=== PATIENT | male | born 1955 | race Caucasian/White ===

== ENCOUNTER 2023-12-10 06:16 | Day surgery (SDC) | payer MEDICARE, OTHER, SELFPAY ==
[2023-12-10] VITALS (10 sets, daily range): BP systolic 144–186; BP diastolic 76–100; BMI 34.4
[2023-12-10] MEDS: ROXICODONE 10 MG PO (16:27)
== END 2023-12-10 17:00 | disposition home or self-care (01) ==
LOC: SDS 06:16
PROVIDERS: ATTENDING PHYSICIAN Surgery
DX: N43.3 Hydrocele, unspecified (principal)
CPT/HCPCS: 55040; 88302; 93005

== ENCOUNTER 2023-12-31 15:47 | Emergency (ER) | payer MEDICARE, OTHER, SELFPAY ==
[2023-12-31] VITALS (9 sets, daily range): BP systolic 187–203; BP diastolic 85–105; BMI 35.1
[2023-12-31 17:08] LABS: % Basophils 1.1 % (0-2); % Eosinophils 5.8 % (0-6); % Immature Granulocytes 0.3 % (0-0.5); % Lymphocytes 17.5 % (20.5-51.1); % Monocytes 11.2 % (1.7-9.3); % Neutrophils 64.1 % (42.2-75.2); Absolute Basophils 0.1 10^3/uL (0-0.2); Absolute Eosinophils 0.5 10^3/uL (0-0.7); Absolute Lymphocytes 1.6 10^3/uL (1.2-3.4); Absolute Neutrophils 5.8 10^3/uL (1.4-6.5); Hematocrit 48.7 % (39.0-52.0); Hemoglobin 16.7 g/dL (13.0-18.0); Mean Corp Hgb Conc. 34.3 g/dL (33.0-37.0); Mean Corpuscular Volume 87.6 fL (80.0-94.0); Mean Platelet Volume 9.6 fL (7.4-10.4); Nucleated Red Blood Cells % 0 % (-); Platelet Count 216 10^3/uL (130-400); Red Blood Cell Count 5.56 10^6/uL (4.70-6.10)
[2023-12-31 17:46] LABS: Blood Urea Nitrogen 26 mg/dl (9-20); Calcium 9.4 mg/dl (8.4-10.2); Carbon Dioxide 25 mmol/L (22-30); Chloride 104 mmol/L (98-107); Estimated Creatinine Clearance 70 ml/min; Glucose 87 mg/dl (70-99); Sodium 136 mmol/L (135-145)
[2023-12-31] MEDS: NORVASC 5 MG PO (17:54)
[2023-12-31] MEDS: TYLENOL 1000 MG PO (18:36)
--- NOTE | 2023-12-31 18:57 | ED.GENMED ---
History of Present Illness
General
Chief Complaint: Blood Pressure Problem
Source: patient
Exam Limitations: none
Time Seen by Provider: 12/31/23 16:59
History of Present Illness
History of Present Illness:
Patient with 3 weeks of intermittent headaches. Was noted to have elevated blood pressure when he had a hydrocele repair 3 weeks ago. Blood pressure was noted to be elevated at home earlier today which prompted a call to his primary physician who
recommended urgent care follow-up within recommended ER evaluation. Patient denies any focal neurologic symptoms. He has a previous history of hypertension but this had gotten under control and he no longer is on blood pressure medicine. He had
no issues with his hydrocele repair.
Past History
Past History
ED Past Medical History: Psychiatric (Anxiety)
ED Past Surgical History: Orthopedic and Urological
Social History
Tobacco: Smoker
Alcohol: None
Drug: None
Review of Systems
Review of Systems
All Other Systems: Not applicable
Constitutional: Denies fever
Respiratory: Reports no symptoms
Cardiac: Reports no symptoms
Phy Exam
Physical Exam
Physical Exam:
GENERAL: Alert and oriented in no apparent distress
EYE: Orbits normal. Discs sharp
NECK: Supple, nontender
CARDIAC: Regular rate and rhythm without any obvious murmurs.
LUNGS: Clear breath sounds,normal
ABDOMEN: Soft, without focal tenderness or distention
NEUROLOGICAL: Alert and oriented , grossly non-focal
SKIN: Warm and dry, no rash or lesion, no discoloration, skin intact.
MUSCULOSKELETAL: No edema,no deformity.Good color
PSYCH: Normal and appropriate interaction.
Course
Orders/Labs/Results
Orders:
Orders
12/31/23 16:14
Electrocardiogram (*1) Urgent
Reason for Study: Chest Pain
EKG- Treatment ONCE
12/31/23 16:56
Basic Metabolic Panel Urgent
Complete Blood Count/With Diff Urgent
12/31/23 17:45
CT Head W/o Iv Contrast Urgent
Comment:
Reason For Exam: Headache/hypertension
12/31/23 17:47
Amlodipine [Norvasc] 5 mg PO NOW STA
12/31/23 18:27
Acetaminophen [Tylenol] 1,000 mg PO NOW STA
12/31/23 19:13
Cefdinir [Omnicef] 300 mg PO NOW STA
Abnormal Lab Results
12/31/23
16:56
Absolute Monos (auto) 1.0 H 10^3/uL
(0.1-0.6)
Lymphocytes % 17.5 L %
(20.5-51.1)
Monocytes % 11.2 H %
(1.7-9.3)
BUN 26 H mg/dl
(9-20)
12/31/23 16:56
12/31/23 16:56
Vital Signs
Initial and Last Documented VS:
Initial Vital Signs
Temp Pulse Resp BP Pulse Ox
98.0 F 71 20 192/96 94
12/31/23 16:08 12/31/23 16:08 12/31/23 16:08 12/31/23 16:08 12/31/23 16:08
Last Documented Vital Signs
Temp Pulse Resp BP Pulse Ox
98.0 F 71 20 187/92 92
12/31/23 16:08 12/31/23 16:08 12/31/23 16:08 12/31/23 19:53 12/31/23 19:53
MDM/Problems Addressed
Differential Diagnosis Includes:
Patient's blood pressure running 200/85 on arrival. This was the range earlier today and the earlier in the last few weeks. Likely does require blood pressure management. Not convinced this explains his headaches however. He is nonfocal. Very
low suspicion for bleed. Reasonable to start blood pressure management. CT does show sinusitis which may be the etiology of his symptoms.
*EKG
Interpreted by ED Provider?: Yes
Interpretation: normal
Comparison EKG: no changes
Heart Rate: 63
Rate: normal
Rhythm: sinus
[place]: normal axis
Interval: normal interval
QRS Pattern: normal QRS
Ischemia: no ischemia
*Critical Care Note
Total Time (30-74mins, 75-104mins- exclusive of procedures): Not Applicable
Update Note
Update Note:
1914.... Patient has remained medically stable. CT scan shows sinusitis which is more likely the cause of his headaches and his blood pressure. Blood pressures have been in the 190s to 200s over mid 90s range. This is likely been going on.
Patient's penicillin allergy is blotchy rash 30 years ago. Feel a cephalosporin is reasonable.
1999.... Last blood pressure 187/92. Headache is resolved. Patient is stable. Tolerated Omnicef well. Discharged to follow-up
ED Attending Note
-
Portions of this chart may have been created with voice recognition software.� Occasional wrong word or��sound alike� substitutions may have occurred due to the inherent limitations of voice recognition software.
Discharge Plan
Departure
Patient Disposition: Home (Routine Discharge)
Date of Disposition: 12/31/23
Time of Disposition: 19:56
Patient with high blood pressure during this ER visit?: Yes
Discharge Problem:
Hypertension, Headache, Sinusitis
Instructions: Headache, Adult ED, Sinusitis, Adult ED, BLOOD PRESSURE
Prescriptions:
New
cefdinir 300 mg capsule
300 mg PO BID 10 Days Qty: 20 0RF
amlodipine 5 mg tablet
5 mg PO DAILY Qty: 30 0RF
No Action
Trelegy Ellipta 100-62.5-25 mcg Blister With Device
1 inh INHALATION DAILY
Referrals:
Andrew Hutson PA-C [Family Provider] - Follow up in 2-3 days
Interventions
Interventions:
*Risk Screen - Suicide Last Done: 12/31/23 16:08
*General Assessment Last Done: 12/31/23 16:08
*Neglect/Abuse Screening Last Done: 12/31/23 16:08
*ED COVID-19 Vaccine History Last Done: 12/31/23 17:06
ED- Cardiac Assessment Last Done: 12/31/23 17:07
ED- Neurological Assessment Last Done: 12/31/23 17:07
ED- Pulmonary Assessment Last Done: 12/31/23 17:07
ED-Skin Assessment Last Done: 12/31/23 17:07
Discharge Date and Time
Print Language: [place]
[2023-12-31] MEDS: OMNICEF 300 MG PO (19:24)
== END 2023-12-31 20:07 | disposition home or self-care (01) ==
LOC: EMR 15:47
PROVIDERS: EMERGENCY PHYSICIAN Emergency Medicine; FAMILY PHYSICIAN Physician Assistant Medical
DX: J01.90 Acute sinusitis, unspecified (principal); I10 Essential (primary) hypertension; R51.9 Headache, unspecified; F17.200 Nicotine dependence, unspecified, uncomplicated
CPT/HCPCS: 99285; 70450; 80048; 85025; 93005

== ENCOUNTER 2024-01-04 12:48 | Emergency (ER) | payer MEDICARE, OTHER, SELFPAY ==
[2024-01-04] VITALS (7 sets, daily range): BP systolic 152–197; BP diastolic 76–105
--- NOTE | 2024-01-04 13:42 | ED.GENMED ---
History of Present Illness
General
Chief Complaint: Blood Pressure Problem
Source: patient and spouse
Exam Limitations: none
Time Seen by Provider: 01/04/24 13:08
Nursing documentation reviewed up to this point in time: agreed with
History of Present Illness
History of Present Illness:
Patient to ED with complaint of conitinued elevated BP readings and headache. He was seen in ED on 12/30 and started on Norvasc 5mg daily. Dose was increased to 10mg on Wednesday. He has been checking his BP at home and readings range 170-190's/
88-118. Reports compliance with medication. CT on 12/30 showed sinusitis and he was placed on cefdinir. No improvement in headaches. Denies any CP/pressure. History of COPD, no changes in respiratory status. Denies fever/chills, recent illness.
Hydrocele 2 weeks ago and states BP has been elevated since. He was treated for HTN many years ago. States he was taking Losartan. Med was d/c'd after weight loss and he states he has not had any issues since. He feels that BP has been elevated
since the hydrocele surgery however he only checked his BP due to his headache. Has not routinely monitored BP. Brought to ED by spouse for eval.
Past History
Past History
ED Past Medical History: COPD, HTN and Psychiatric (Anxiety)
ED Past Surgical History: Orthopedic and Urological
Social History
Tobacco: Smoker
Alcohol: None
Drug: None
Review of Systems
Review of Systems
All Other Systems: ROS reviewed and negative except as documented in HPI and ROS
Constitutional: Reports no symptoms
EENT: Reports no symptoms
Respiratory: Reports no symptoms
Cardiac: Reports no symptoms
ABD/GI: Reports no symptoms
: Reports no symptoms
Musculoskeletal: Reports no symptoms
Skin: Reports no symptoms
Neurological: Reports headache
Psychiatric: Reports no symptoms
Phy Exam
General Physical Exam
General Presentation: well appearing and no apparent distress
General age: appears stated age
General Skin: warm and dry
General Habitus: normal
General Mental: alert
Cardiovascular Exam
Cardiovascular Exam: regular rate/rhythm and no edema
Pulmonary Exam
Pulmonary Exam: lungs clear, no respiratory distress, chest non tender and decreased breath sounds
Neurological Exam
Neurological Exam: alert, oriented x3, CN II-XII intact, no motor deficits and no sensory deficits
Musculoskeletal Exam
Musculoskeletal Exam: full ROM and neuro vasc intact
Skin Exam
Skin Exam: normal color, warm/dry and no rash
Psychiatric Exam
Psychiatric Exam: normal mood/affect
Course
Orders/Labs/Results
Orders:
Orders
01/04/24 13:31
Losartan [Cozaar] 50 mg PO NOW STA
01/04/24 13:55
Complete Blood Count/With Diff Urgent
Comprehensive Metabolic Panel Urgent
01/04/24 14:12
Electrocardiogram (*1) Urgent
Reason for Study: Fatigue / Weakness
EKG- Treatment ONCE
Abnormal Lab Results
01/04/24
13:55
Hgb 18.2 H g/dL
(13.0-18.0)
Absolute Monos (auto) 0.9 H 10^3/uL
(0.1-0.6)
Lymphocytes % 14.1 L %
(20.5-51.1)
Monocytes % 10.3 H %
(1.7-9.3)
BUN 24 H mg/dl
(9-20)
Glucose 109 H mg/dl
(70-99)
01/04/24 13:55
01/04/24 13:55
Vital Signs
Initial and Last Documented VS:
Initial Vital Signs
Temp Pulse Resp BP Pulse Ox
98.2 F 88 20 178/102 95
01/04/24 12:50 01/04/24 12:50 01/04/24 12:50 01/04/24 12:50 01/04/24 12:50
Last Documented Vital Signs
Temp Pulse Resp BP Pulse Ox
98.2 F 76 16 157/76 92
01/04/24 12:50 01/04/24 14:32 01/04/24 14:32 01/04/24 14:32 01/04/24 14:32
*Pulse Oximetry
Patient hypoxic: no
*EKG
Interpretation: normal
Rate: normal
Rhythm: sinus
*Critical Care Note
Total Time (30-74mins, 75-104mins- exclusive of procedures): Not Applicable
Update Note
Update Note:
BP now 157/76. Reports headache has resolved. Will discharge home, continue Losartan 50mg daily. He will check BP 2x daily, follow up with PCP on Wednesday as scheduled. He does follow with cardiology but does not recall name. He will call for an
appointment when he gets home. Given instructions on s/s to return to ED and he is agreeable to plan.
ED Attending Note
-
Portions of this chart may have been created with voice recognition software.� Occasional wrong word or��sound alike� substitutions may have occurred due to the inherent limitations of voice recognition software.
Discharge Plan
Departure
Patient Disposition: Home (Routine Discharge)
Date of Disposition: 01/04/24
Time of Disposition: 14:51
Patient with high blood pressure during this ER visit?: No
Condition: Good
Covid-19: Not Applicable
Discharge Problem:
Elevated blood pressure reading
Instructions: High Blood Pressure (DC)
Prescriptions:
New
losartan 50 mg tablet
50 mg PO DAILY Qty: 30 0RF
No Action
Trelegy Ellipta 100-62.5-25 mcg Blister With Device
1 inh INHALATION DAILY
cefdinir 300 mg capsule
300 mg PO BID 10 Days Qty: 20 0RF
amlodipine 5 mg tablet
10 mg PO DAILY
Referrals:
Andrew Hutson PA-C [Family Provider] - Keep scheduled appt
Activity Restrictions/Additional Instructions:
Schedule follow up appointment with your cardiololgist.
Interventions
Interventions:
*Risk Screen - Suicide Last Done: 01/04/24 12:50
*General Assessment Last Done: 01/04/24 12:50
*Neglect/Abuse Screening Last Done: 01/04/24 12:50
ED- Fall Risk Assessment Last Done: 01/04/24 13:57
*ED COVID-19 Vaccine History Last Done: 01/04/24 13:11
ED- Cardiac Assessment Last Done: 01/04/24 13:13
ED- Neurological Assessment Last Done: 01/04/24 13:12
ED- Pulmonary Assessment Last Done: 01/04/24 13:12
Discharge Date and Time
Print Language: [place]
[2024-01-04] MEDS: COZAAR 50 MG PO (13:47)
[2024-01-04 14:01] LABS: % Basophils 1.2 % (0-2); % Eosinophils 4.3 % (0-6); % Immature Granulocytes 0.2 % (0-0.5); % Lymphocytes 14.1 % (20.5-51.1); % Monocytes 10.3 % (1.7-9.3); % Neutrophils 69.9 % (42.2-75.2); Absolute Basophils 0.1 10^3/uL (0-0.2); Absolute Eosinophils 0.4 10^3/uL (0-0.7); Absolute Lymphocytes 1.3 10^3/uL (1.2-3.4); Absolute Monocytes 0.9 10^3/uL (0.1-0.6); Absolute Neutrophils 6.2 10^3/uL (1.4-6.5); Hematocrit 50.7 % (39.0-52.0); Hemoglobin 18.2 g/dL (13.0-18.0); Mean Corp Hgb Conc. 35.9 g/dL (33.0-37.0); Mean Corpuscular Volume 83.7 fL (80.0-94.0); Mean Platelet Volume 9.4 fL (7.4-10.4); Nucleated Red Blood Cells % 0 % (-); Platelet Count 248 10^3/uL (130-400); Red Blood Cell Count 6.06 10^6/uL (4.70-6.10); Red Cell Dist. Width 14.1 % (11.5-14.5); White Blood Cell Count 8.9 10^3/uL (4.8-10.8)
[2024-01-04 14:22] LABS: ALT (SGPT) 27 U/L (0-50); AST (SGOT) 25 U/L (17-59); Albumin 4.4 g/dl (3.5-5.0); Alkaline Phosphatase 83 U/L (38-126); Blood Urea Nitrogen 24 mg/dl (9-20); Calcium 9.4 mg/dl (8.4-10.2); Carbon Dioxide 26 mmol/L (22-30); Chloride 103 mmol/L (98-107); Glucose 109 mg/dl (70-99); Potassium 3.9 mmol/L (3.5-5.1); Sodium 138 mmol/L (135-145); Total Bilirubin 0.8 mg/dl (0.2-1.3)
== END 2024-01-04 14:59 | disposition home or self-care (01) ==
LOC: EMR 12:48
PROVIDERS: Nurse Practitioner; EMERGENCY PHYSICIAN Emergency Medicine; FAMILY PHYSICIAN Physician Assistant Medical
DX: R03.0 Elevated blood-pressure reading, without diagnosis of hypertension (principal); R51.9 Headache, unspecified; J44.9 Chronic obstructive pulmonary disease, unspecified; F41.9 Anxiety disorder, unspecified; F17.200 Nicotine dependence, unspecified, uncomplicated; Z88.0 Allergy status to penicillin
CPT/HCPCS: 99283; 80053; 85025; 93005

== ENCOUNTER → 2024-03-30 08:03 | Outpatient (REF) | payer MEDICARE, OTHER, SELFPAY | LOC: DHCBC/DCA 08:03 | PROVIDERS: ATTENDING PHYSICIAN Physician Assistant Medical; FAMILY PHYSICIAN Physician Assistant Medical | DX: I10 Essential (primary) hypertension (principal); R06.02 Shortness of breath; G47.30 Sleep apnea, unspecified | CPT/HCPCS: 78452; 93017; A9500; J2785 ==

== ENCOUNTER → 2024-04-06 12:59 | Outpatient (REF) | payer MEDICARE, OTHER, SELFPAY | LOC: HWRCS 12:59 | PROVIDERS: ATTENDING PHYSICIAN Physician Assistant Medical; FAMILY PHYSICIAN Physician Assistant Medical | DX: I10 Essential (primary) hypertension (principal); R06.02 Shortness of breath; G47.30 Sleep apnea, unspecified | CPT/HCPCS: 93306 ==

== ENCOUNTER 2024-07-06 09:25 | Inpatient (IN) | payer MEDICARE, OTHER, SELFPAY ==
[2024-07-05] VITALS (16 sets, daily range): BP systolic 108–158; BP diastolic 47–96; BMI 35.0
[2024-07-05] MEDS: DECADRON 10 MG IV (10:17)
[2024-07-05] MEDS: DUONEB 3 ML INH ×3 (10:18→19:45)
--- NOTE | 2024-07-05 10:28 | ED.GENMED ---
History of Present Illness
General
Chief Complaint: Breathing Problem
Source: patient and spouse
Exam Limitations: none
Time Seen by Provider: 07/05/24 10:00
Nursing documentation reviewed up to this point in time: agreed with
History of Present Illness
History of Present Illness:
68-year-old male past medical history of COPD, hypertension presenting to the emergency department today with concerns of shortness of breath worsening over the past 2 days. Started with some mild upper respiratory symptoms over the past 2 days
worsening shortness of breath today. Feels similar to COPD exacerbations. Has been taking inhaler at home without relief. Denies specific chest pain denies fevers.
Past History
Past History
ED Past Medical History: COPD, HTN and Psychiatric (Anxiety)
ED Past Surgical History: Orthopedic and Urological
Social History
Tobacco: Smoker
Alcohol: None
Drug: None
Review of Systems
Review of Systems
Allergies reviewed?: Yes
All Other Systems: ROS reviewed and negative except as documented in HPI and ROS
Phy Exam
Physical Exam
Physical Exam:
GENERAL: Alert , in no apparent distress
EYE: pupils equal and reactive
NECK: Supple, no significant adenopathy.
ENT: o/p clr, mmm.
CARDIAC: Regular rate and rhythm .
LUNGS: Diffuse inspiratory and expiratory wheezing
ABDOMEN: Soft, without focal tenderness, no r/g, no cvat
NEUROLOGICAL: Alert and oriented, no focal neuro deficits
SKIN: Warm and dry, skin intact.
MUSCULOSKELETAL: No edema, well perfused.
PSYCH: Normal and appropriate interaction.
Scores
Heart Failure Risk
Heart Failure Risk Score: Not Applicable
Course
Orders/Labs/Results
Orders:
Orders
07/05/24 10:03
Dexamethasone Sod Phosphate [Decadron] 10 mg IV NOW STA
Ipratropium/Albuterol Sulfate [Duoneb] 3 ml INH R NOW STA
07/05/24 10:07
EKG [Electrocardiogram (*1)] Urgent
Reason for Study: Chest Pain
EKG- Treatment ONCE
CR Chest - 2 Views Urgent
Comment:
Reason For Exam: cough sob
07/05/24 10:14
Complete Blood Count/With Diff Urgent
Comprehensive Metabolic Panel Urgent
Lactic Acid Q4H
Comment: CANCEL 2nd LACTIC ACID IF 1st LACTIC ACID IS LESS THAN 2
NT-proBNP Urgent
07/05/24 11:09
COVID-19 Antigen Urgent
Source: Nasal Swab
Influenza A+B Rapid Molecular Urgent
VIRGIL Source: Nasal Swab
Specimen Description:
07/05/24 11:35
Ipratropium/Albuterol Sulfate [Duoneb] 3 ml INH R NOW ONE
07/05/24 13:03
Azithromycin [Zithromax] 500 mg PO NOW STA
Abnormal Lab Results
07/05/24
10:14
RDW 14.8 H %
(11.5-14.5)
Absolute Lymphs (auto) 0.5 L 10^3/uL
(1.2-3.4)
Absolute Monos (auto) 0.8 H 10^3/uL
(0.1-0.6)
Neutrophils % 75.9 H %
(42.2-75.2)
Lymphocytes % 7.8 L %
(20.5-51.1)
Monocytes % 14.3 H %
(1.7-9.3)
Sodium 134 L mmol/L
(135-145)
Creatinine 1.4 H mg/dL
(0.7-1.3)
Glucose 132 H mg/dl
(70-99)
07/05/24 10:14
07/05/24 10:14
Vital Signs
Initial and Last Documented VS:
Initial Vital Signs
Temp Pulse Resp BP Pulse Ox
98.4 F 100 24 157/77 88
07/05/24 09:48 07/05/24 09:48 07/05/24 09:48 07/05/24 09:48 07/05/24 09:48
Last Documented Vital Signs
Temp Pulse Resp BP Pulse Ox
98.4 F 101 32 134/78 93
07/05/24 09:48 07/05/24 10:25 07/05/24 11:19 07/05/24 10:00 07/05/24 11:19
MDM/Problems Addressed
MDM/Problems Addressed:
68-year-old male presenting to the emergency department today with concerns of worsening shortness of breath over the past 2 days or so. Started with mild URI symptoms 2 days ago with gradual worsening shortness of breath and wheezing. Does have a
history of COPD. This feels like a COPD exacerbation. Denies specific fevers denies specific chest pain. Patient started on DuoNebs as well as steroids. Patient reassessed after treatment and has slight improvement able to speak in full
sentences still with considerable inspiratory and expiratory wheeze plan to admit for further treatment. Also given dose of azithromycin due to change in phlegm. Patient flu test positive. Otherwise labs unremarkable. Patient satting well in the
mid 90s with 2 L nasal cannula
*Critical Care Note
Total Time (30-74mins, 75-104mins- exclusive of procedures): Not Applicable
ED Attending Note
-
Portions of this chart may have been created with voice recognition software.� Occasional wrong word or��sound alike� substitutions may have occurred due to the inherent limitations of voice recognition software.
Discharge Plan
Departure
Patient Disposition: Admit
Date of Disposition: 07/05/24
Time of Disposition: 13:08
Admit to: Med/Surg and Telemetry
Admit to doctor: Jimi
Presentation/result/management discussed w/ accepting MD/DO: Hospitalist
Patient with high blood pressure during this ER visit?: No
Condition: Good
Covid-19: Not Applicable
Discharge Problem:
COPD exacerbation, Influenza
Prescriptions:
No Action
Trelegy Ellipta 100-62.5-25 mcg Blister With Device
1 inh INHALATION R DAILY
amlodipine 5 mg tablet
5 mg PO DAILY
NyQuil 7.5-60-30-1,000 mg/30 mL Liquid
15 ml PO HSPRN PRN (Reason: cough and congestion)
losartan 50 mg tablet
100 mg PO DAILY
Referrals:
Shanice Elias CRNP [Family Provider] -
Interventions
Interventions:
*Risk Screen - Suicide Last Done: 07/05/24 09:48
*General Assessment Last Done: 07/05/24 09:48
*Neglect/Abuse Screening Last Done: 07/05/24 09:48
*ED COVID-19 Vaccine History Last Done: 07/05/24 10:25
ED- Cardiac Assessment Last Done: 07/05/24 11:19
ED- Pulmonary Assessment Last Done: 07/05/24 10:26
Discharge Date and Time
Print Language: [place]
[2024-07-05 10:36] LABS: % Basophils 0.7 % (0-2); % Immature Granulocytes 0.3 % (0-0.5); % Lymphocytes 7.8 % (20.5-51.1); % Monocytes 14.3 % (1.7-9.3); % Neutrophils 75.9 % (42.2-75.2); Absolute Eosinophils 0.1 10^3/uL (0-0.7); Absolute Lymphocytes 0.5 10^3/uL (1.2-3.4); Absolute Monocytes 0.8 10^3/uL (0.1-0.6); Absolute Neutrophils 4.4 10^3/uL (1.4-6.5); Hemoglobin 14.8 g/dL (13.0-18.0); Mean Corp Hgb Conc. 33.6 g/dL (33.0-37.0); Mean Corpuscular Hgb 30.6 pg (27.0-31.0); Mean Corpuscular Volume 90.9 fL (80.0-94.0); Mean Platelet Volume 9.9 fL (7.4-10.4); Nucleated Red Blood Cells % 0 % (-); Platelet Count 207 10^3/uL (130-400); Red Blood Cell Count 4.84 10^6/uL (4.70-6.10); Red Cell Dist. Width 14.8 % (11.5-14.5); White Blood Cell Count 5.8 10^3/uL (4.8-10.8)
[2024-07-05 10:51] LABS: ALT (SGPT) 20 U/L (0-50); AST (SGOT) 22 U/L (17-59); Albumin 3.8 g/dl (3.5-5.0); Alkaline Phosphatase 84 U/L (38-126); Blood Urea Nitrogen 19 mg/dl (9-20); Calcium 8.5 mg/dl (8.4-10.2); Carbon Dioxide 26 mmol/L (22-30); Chloride 99 mmol/L (98-107); Estimated Creatinine Clearance 65 ml/min; Glucose 132 mg/dl (70-99); Potassium 4.3 mmol/L (3.5-5.1); Sodium 134 mmol/L (135-145); Total Bilirubin 0.5 mg/dl (0.2-1.3); Total Protein 6.7 g/dl (6.3-8.2); eGFR 54.07
[2024-07-05 11:11] LABS: NT-proBNP 989 pg/ml
[2024-07-05 11:21] LABS: Lactic Acid 1.4 mmol/L (0.7-2.0)
[2024-07-05 11:36] LABS: COVID-19 Antigen Negative (Negative)
[2024-07-05] MEDS: ZITHROMAX 500 MG PO (13:20)
--- NOTE | 2024-07-05 14:38 | HPS.HSE ---
Family Physician
-
Family Physician: CARLOS Frazier
Chief Complaint
-
SOB
History of Present Illness
The patient is a 68-year-old male with past medical history significant for COPD, hypertension, presenting to the ED today due to dyspnea, change in phlegm production (increased and whitish), with shortness of breath that has worsened over the past
2 days. It started with mild URI symptoms, and the became worse today, similar to prior COPD exacerbations. Home inhaler without relief. No CP. No n/v/d, no bleeding, no dysuria. O2 in ED 88%, pulse 101, RR 32, initially unable to speak in full
sentences. Not on home oxygen.
Flu A positive
Na 134 Creat 1.4
ED txt:
-Dexa 10 mg IV
-Duo-Neb INH
-Azithro PO
Medical History
Past Medical History
Past Medical History: Reports COPD, HTN (Essential), Psychiatric (anxiety) and Other (FAIZAN intolerant to CPAP, BPH, obesity)
Past Surgical History: Reports Orthopedic (knee surgery) and Other (hydrocele)
Social History
Tobacco: Smoker
Alcohol: None
Drug: None
Personal:
Living: With Family
Family History
Family History: Other (asked patient, no significant history)
Allergies / Home Medications
Allergies reflects when Allergies were last updated in [employer].
Home Medications with original date entered in [employer]
Allergy/Medication List:
Allergies
Allergy/AdvReac Type Severity Reaction Status Date / Time
Penicillins Allergy Rash Verified 07/05/24 09:48
Home Medications
fluticasone fur. 100 mcg-umeclid 62.5 mcg-vilant 25 mcg inhalat.powder (Trelegy Ellipta) 1 inh inhalation R DAILY 12/07/23
amlodipine 5 mg tablet 5 mg PO DAILY 01/04/24
akmwnsyji-PNE-UZ-acetaminophen 7.5 mg-60 [id number]/30mL oral liqd 15 ml PO HSPRN PRN cough and congestion 07/05/24
losartan 50 mg tablet 100 mg PO DAILY 07/05/24
Review of Systems
-
A 12 point ROS was completed and negative except as noted: Yes
Physical Exam
Vital Signs
Vital Signs
Temp Pulse Resp BP Pulse Ox
98.4 F 101 32 134/78 93
07/05/24 09:48 07/05/24 10:25 07/05/24 11:19 07/05/24 10:00 07/05/24 11:19
Physical Exam
General: Well Developed, Well Nourished and Respiratory Distress (audible wheezing, tachypneic)
HEENT: NormoCephalic, Anicteric and Moist mucous membranes
Respiratory: Wheezes (end expiratory)
Cardiac: S1/S2 and Regular Rhythm
GI: Non Tender, Non Distended and Normal Bowel Sounds
Musculoskeletal: No Clubbing, No Cyanosis and No Edema
Skin: Other (skin tag/lesion right face)
Neuro: AO x 3, No Motor Deficits and Nonfocal/grossly intact
Psych: Calm
Laboratory Results
-
07/05/24 10:14
07/05/24 10:14
Laboratory Results
Lactic Acid Cancelled 07/05/24 14:15
Total Bilirubin 0.5 mg/dl (0.2-1.3) 07/05/24 10:14
AST 22 U/L (17-59) 07/05/24 10:14
ALT 20 U/L (0-50) 07/05/24 10:14
Alkaline Phosphatase 84 U/L (38-126) 07/05/24 10:14
Data Reviewed
-
Diagnostic Radiology: Report Reviewed by me (Large bulla within the medial and posterior right upper lung, which has developed an air-fluid level. This would suggest infection of the bulla.)
Medical Tests (Nuc Med, Echo, EKG etc): Report Reviewed by me (NSR)
Old Records: Reviewed (ECHO 04/06/24 Normal left ventricular chamber size. Mild concentric left ventricular hypertrophy. Normal regional wall motion. Normal left ventricular systolic function. Left ventricular ejection fraction is 55-60%.
Normal diastolic function. Normal right ventricular size and function. )
Impression/Plan
-
IMPRESSION:
The patient is a 68-year-old male with past medical history significant for COPD, hypertension, presenting to the ED today due to dyspnea, change in phlegm production, with shortness of breath that has worsened over the past 2 days. It started with
mild URI symptoms, and the became worse today, similar to prior COPD exacerbations. Home inhaler without relief. No CP. O2 in ED 88%, pulse 101, RR 32, initially unable to speak in full sentences. Not on home oxygen.
Flu A positive
Na 134 Creat 1.4
ED txt:
-Dexa 10 mg IV
-Duo-Neb INH
-Azithro PO
#Acute hypoxic respiratory insufficiency, 88% RA, improved to low 90s on 2 L associated with worsening cough w phlegm production
#Influenza A positive
#Large bulla within the medial and posterior right upper lung, which has developed an air-fluid level, possible infection of the bulla.
#Hyponatremia Na 134
#Creat 1.4, possible KATHIA vs CKD undiagnosed, possibly volume depleted
-IVF, check legionella UA
#concern for underlying CAP, bacterial
#Essential HTN
#BPH
#Skin tag/lesion right face
-pt will follow OP with Derm
PLAN:
-O2 per NC w weaning protocol
-Pulm Consultation placed, discussed the patient with Pulm
- Recs: CT chest w/o contrast, treat for CAP
-IV Rocephin (pt tolerated cephalosporins in the past), oral Doxy
-Nebs scheduled
-IV Dexa 4 mg TID
-Tamiflu 75 BID
-IV fluids for 1 liter, repeat labs in am
-supportive care, sputum cx, CHARLES
-home BP meds w hold parameters
DVT proph-SQ Lovenox
Full Code
[2024-07-05] MEDS: SYMBICORT 80/4.5 MCG INHALER 2 PUFF INH (19:45)
[2024-07-05] MEDS: VIBRAMYCIN 100 MG PO (20:09)
[2024-07-05] MEDS: TAMIFLU 75 MG PO (20:09)
[2024-07-05] MEDS: DECADRON 4 MG IV (20:11)
[2024-07-05] MEDS: NSS 1000 IV (20:12)
--- NOTE | 2024-07-05 20:28 | PTCARENOTE ---
Pt sent to CT scan via stretcher.
[2024-07-05] MEDS: ROCEPHIN 1000 MG IV (20:52)
[2024-07-05] MEDS: LOVENOX 40 MG SC (20:52)
[2024-07-05] MEDS: STERILE WATER FOR INJECTION 10 ML IV (20:53)
[2024-07-06] VITALS (12 sets, daily range): BP systolic 108–153; BP diastolic 51–96; BMI 33.1
--- NOTE | 2024-07-06 01:15 | PTCARENOTE ---
Pt received as M/S hold in [facility]. AAOx3, pleasant. Admission and assessment completed (refer to worklist). Pt has some difficulty recalling physician names. Oriented to surroundings and plan of care discussed. Harsh moist non prod cough, HERNADEZ,
diffuse expiratory wheezes. 94% on 3L. Instructed to ring for assist when OOB, verbalizes understanding. #20 RAC w/NSS at 150 mL/hr, infusing w/o complication. Call jorgensen w/in reach.
[2024-07-06] MEDS: DECADRON 4 MG IV ×3 (04:33→19:44)
[2024-07-06] MEDS: DUONEB 3 ML INH ×5 (05:06→19:12)
[2024-07-06 05:48] LABS: Blood Urea Nitrogen 24 mg/dl (9-20); Calcium 8.4 mg/dl (8.4-10.2); Carbon Dioxide 26 mmol/L (22-30); Chloride 102 mmol/L (98-107); Estimated Creatinine Clearance 70 ml/min; Glucose 137 mg/dl (70-99); Potassium 5.4 mmol/L (3.5-5.1); Sodium 137 mmol/L (135-145)
[2024-07-06] MEDS: NSS IV ×2 (07:31→17:13)
[2024-07-06] MEDS: SYMBICORT 80/4.5 MCG INHALER 2 PUFF INH ×2 (07:48→19:12)
[2024-07-06] MEDS: SPIRIVA RESPIMAT 2.5 MCG 2 PUFF INH (07:48)
--- NOTE | 2024-07-06 07:56 | CON.PUL ---
Consultation
Consultation Request
Date/Time Consultation Requested: 07/06/2024-7:30 AM
Date/Time Consultation Performed: 07/06/2024-7:30 AM
Requesting Provider: Hospitalist
Performing Provider: Dr. Simpson
Reason for Consultation: Shortness of breath
Medical History
-
Chief Complaint: Shortness of breath
History of Present Illness:
68-year-old smoking unvaccinated male with a history of COPD, hypertension, obstructive sleep apnea CPAP intolerance as well as anxiety and obesity who presented with increasing shortness of breath, nonproductive cough, wheezing found to have
influenza and pneumonia-pulmonary was consulted for shortness of breath/influenza and pneumonia 07/06/2024. Patient states that he is feeling improved on oxygen. He continues to have some shortness of breath, dyspnea exertion, but no chest pain,
chest tightness, mopped assist and has a nonproductive cough. He did not complain of any abdominal pain, or increased leg swelling or focal weakness. He states that he has tried CPAP in the past and was intolerant. He does not believe in vaccines.
Past Medical History
Past Medical History: None (Hypertension. COPD. Tobacco addiction. Anxiety. Obstructive sleep apnea-severe CPAP intolerant. BPH. Right TKA 2021.. Right shoulder rotator cuff repair. Hydrocele.)
Social History
Tobacco: Smoker ([id number])
Drug: None
Living: With Family
Occupational Exposures: No known asbestos exposure
Environmental Exposures: No known tuberculosis exposure
Family History
Family History: Other (Mother-hypertension.)
Allergies / Home Medications
Allergies
Allergy/AdvReac Type Severity Reaction Status Date / Time
Penicillins Allergy Rash Verified 07/05/24 09:48
Home Medications
�Medication �Instructions �Recorded �Confirmed �Last Taken �Type
fluticasone fur. 100 mcg-umeclid 1 inh inhalation R DAILY 12/07/23 07/05/24 07/04/24 History
62.5 mcg-vilant 25 mcg Lung/Breathing Issues
inhalat.powder (Trelegy Ellipta)
amlodipine 5 mg tablet 5 mg PO DAILY Blood Pressure 01/04/24 07/05/24 07/04/24 History
ccoqynabu-YFF-YH-acetaminophen 7.5 15 ml PO HSPRN PRN cough and 07/05/24 07/05/24 07/04/24 History
mg-60 [id number]/30mL oral liqd congestion
losartan 50 mg tablet 100 mg PO DAILY Blood Pressure 07/05/24 07/05/24 07/04/24 History
Review of Systems
-
Unable to Obtain full review of systems at this time due to: Other (Per HPI)
Vitals / Labs / Diagnostic Testing
Vital Signs
Temp Pulse Resp BP Pulse Ox
98.0 F 89 21 126/64 91
07/06/24 07:49 07/06/24 07:51 07/06/24 07:51 07/06/24 07:00 07/06/24 07:51
Lab Data
07/05/24 10:14
07/06/24 04:51
Microbiology
07/05/24 11:09 Nasal Swab Influenza Types A & B (SHEILA) - Final
Influenza A Positive, NAAT
Diagnostic Testing:
Physical Exam
-
Exam:
Well-nourished and well-developed in no apparent distress
HEENT-atraumatic, normocephalic, thick neck
Neck-supple, no JVD, no bruit
Heart-regular rate and rhythm-no murmurs, rubs or gallops
Chest with diminished breath sounds, prolonged expiratory time, expiratory wheezes
Abdomen-soft, nontender, nondistended, no hepatosplenomegaly
Extremities-no cyanosis, clubbing, edema and good peripheral pulses
Integument-intact, no rashes, lesions or ecchymosis
Neurology-alert and oriented, nonfocal motor and sensory exam
Assessment
-
68-year-old smoking unvaccinated male with a history of COPD, hypertension, obstructive sleep apnea CPAP intolerance as well as anxiety and obesity who presented with increasing shortness of breath, nonproductive cough, wheezing found to have
influenza and pneumonia-pulmonary was consulted for shortness of breath/influenza and pneumonia 07/06/2024.
COPD with acute exacerbation
Influenza A
Large right apical bleb/bulla-infected with air-fluid level
Hyponatremia
KATHIA
Conditions present prior to admission:
Hypertension.
COPD.
Tobacco addiction.
History of polycythemia-hemoglobin 18.3 02/2023
Anxiety.
Obstructive sleep apnea-severe CPAP intolerant.
BPH.
Right TKA 2021. Right shoulder rotator cuff repair. Hydrocele.
Plan
Respiratory decompensation in this unvaccinated smoker likely due to influenza and infected bulla/pneumonia
Supplemental oxygen as needed
Nebulizers
Symbicort and Spiriva continue
Mucolytic's
Mucus clearing devices
Decadron 4 mg IV every 8 hours
Check cultures
Sputum culture if possible
Follow radiographically
Monitor leukocytosis
Empiric antibiotics-ceftriaxone and doxycycline initiated
Tamiflu
Isolation/droplet precautions per protocol
Smoking cessation counseling provided
Vaccination counseling was also provided
Weight loss counseling
Monitor renal function-improving
DVT prophylaxis-on Lovenox
Nutrition
Early mobilization
Patient with severe obstructive sleep apnea, polycythemia-alternatives to CPAP including oral appliances, weight loss, positional therapy, and surgical interventions including hypoglossal nerve stimulation have been reviewed
Patient last saw Dr. Lemus 11/10/[id number] in the next 2 weeks
Diagnostic data:
Chest x-ray 07/05/2024-large bulla posterior right upper lobe developed air-fluid level and COPD changes
CT chest 03/18/2023:Reviewed, showed No evidence for pulmonary embolism.� No evidence for parenchymal lung disease.� Moderate paraseptal emphysema, upper lobe predominant..
CT chest 07/05/2024-centrilobular emphysema with multiple upper lobe blebs, new air-fluid level and a 7 cm right upper lobe bleb suggesting infection
Pulmonary function testing: (07/27/2023)FEV1 /FVC:42%FEV1:1.67 L-47%FVC:3.99 L -83% T.17-95%Residual volume:3.32 L-123%�RV/TLC ratio 46%Expiratory reserve volume:DLCO:10.97-38%DLCO/VA:49%
Portable sleep study 06/25/2023: Reviewed, showed severe obstructive sleep apnea.� Respiratory event index of 100 events per hour..
Echocardiogram 05/08/2020-normal EF, mild LVH, no valvular disease
Echocardiogram 04/06/2024-EF 55-60%, normal right ventricular size and function no valvular pathology
Data Reviewed
-
PFT: Report reviewed by me
EKG: Report reviewed by me
Radiology: Image personally visualized and interpreted and Report reviewed by me
CT Scan: Image personally visualized and interpreted and Report reviewed by me
Medical Tests (Nuc Med, Echo etc): Report reviewed by me
Labs: Labs reviewed by me
Old Records: Reviewed
Total Time Spent with Patient (in minutes): 65
[2024-07-06] MEDS: VIBRAMYCIN 100 MG PO ×2 (09:04→19:47)
[2024-07-06] MEDS: NICODERM TRANSDERMAL 14 MG TRANSDERM (09:04)
[2024-07-06] MEDS: NORVASC 5 MG PO (09:04)
[2024-07-06] MEDS: TAMIFLU 75 MG PO ×2 (09:05→19:47)
[2024-07-06] MEDS: COZAAR 100 MG PO (09:05)
--- NOTE | 2024-07-06 09:17 | PTCARENOTE ---
Weaning O2 as able, currently on 1L, >92%.
--- NOTE | 2024-07-06 09:24 | W.PN.HOSP.TC ---
Today's Communication/Plan
-
One time Lokelma
Hold Losartan
Assessment / Plan
Assessment / Plan
Physical Exam
General: Well Developed, Well Nourished and Respiratory Distress (audible wheezing, tachypneic)
HEENT: NormoCephalic, Anicteric and Moist mucous membranes
Respiratory: Wheezes (end expiratory)
Cardiac: S1/S2 and Regular Rhythm
GI: Non Tender, Non Distended and Normal Bowel Sounds
Musculoskeletal: No Clubbing, No Cyanosis and No Edema
Skin: Other (skin tag/lesion right face)
Neuro: AO x 3, No Motor Deficits and Nonfocal/grossly intact
Psych: Calm
The patient is a 68-year-old male with past medical history significant for COPD, hypertension, presenting to the ED today due to dyspnea, change in phlegm production, with shortness of breath that has worsened over the past 2 days. It started with
mild URI symptoms, and the became worse today, similar to prior COPD exacerbations. Home inhaler without relief. No CP. O2 in ED 88%, pulse 101, RR 32, initially unable to speak in full sentences. Not on home oxygen.
Flu A positive
Na 134 Creat 1.4
ED txt:
-Dexa 10 mg IV
-Duo-Neb INH
-Azithro PO
#Acute hypoxic respiratory insufficiency, 88% RA, improved to low 90s on 2 L associated with worsening cough w phlegm production
#Influenza A positive
#Large bulla within the medial and posterior right upper lung, which has developed an air-fluid level, possible infection of the bulla.
-O2 per NC w weaning protocol
-Pulm Consultation placed, discussed the patient with Pulm
- Recs: CT chest w/o contrast, treat for CAP
-IV Rocephin (pt tolerated cephalosporins in the past), oral Doxy
-Nebs scheduled
-IV Dexa 4 mg TID
-Tamiflu 75 BID
-IV fluids for 1 liter, repeat labs in am
-supportive care, sputum cx, CHARLES
-home BP meds w hold parameters
#Hyponatremia Na 134
Improved
# Hyperkalemia
Hold Losartan
One time Lokelma
# KATHIA on CKD II
c/w mild IVF
-IVF, check legionella UA
#concern for underlying CAP, bacterial
Empiric ABx
Order blood cultures
#Essential HTN
#BPH
#Skin tag/lesion right face
-pt will follow OP with Derm
DVT proph-SQ Lovenox
Full Code
Total time spent to see the patient, examine the patient, review data and lab results, discuss treatment plan with patient, nursing staff around 55 minutes
Anticipated Discharge: > 48 hours
Subjective/Interval History
-
Date of Service: July 06, 2024
Objective Data
-
Labs:
Laboratory Results
07/06/24
04:51
Sodium 137
Potassium 5.4 H D
Chloride 102
Carbon Dioxide 26
BUN 24 H
Creatinine 1.3
Glucose 137 H
Calcium 8.4
Vital Signs:
Vital Signs
Temp Pulse Resp BP Pulse Ox
98.0 F 92 43 132/51 95
07/06/24 07:49 07/06/24 09:15 07/06/24 09:15 07/06/24 09:00 07/06/24 09:15
I&O
07/05/24 07/06/24 07/07/24
06:59 06:59 06:59
Intake Total 1660 / 1660
Output Total 800 / 800
Balance 860 / 860
[2024-07-06] MEDS: LOKELMA 10 GRAM PO (10:27)
[2024-07-06] MEDS: NSS 1000 IV ×2 (10:30→21:24)
--- NOTE | 2024-07-06 12:31 | PTCARENOTE ---
Weaned to room air, SaO2 >92%. Approximately on hour later, SaO2 dropped to 85-88%. Back on 2L O2.
[2024-07-06] MEDS: ROCEPHIN 1000 MG IV (17:06)
[2024-07-06] MEDS: STERILE WATER FOR INJECTION 10 ML IV (17:06)
[2024-07-06] MEDS: LOVENOX 40 MG SC (17:15)
[2024-07-07] MEDS: DECADRON 4 MG IV (03:12)
[2024-07-07 07:10] VITALS: BP 152/77
[2024-07-07] MEDS: DUONEB INH (08:05)
[2024-07-07] MEDS: SYMBICORT 80/4.5 MCG INHALER 2 PUFF INH ×2 (08:06→19:45)
[2024-07-07] MEDS: SPIRIVA RESPIMAT 2.5 MCG 2 PUFF INH (08:06)
[2024-07-07 08:37] LABS: Hematocrit 47.2 % (39.0-52.0); Hemoglobin 15.2 g/dL (13.0-18.0); Mean Corp Hgb Conc. 32.2 g/dL (33.0-37.0); Mean Corpuscular Hgb 30.2 pg (27.0-31.0); Mean Corpuscular Volume 93.8 fL (80.0-94.0); Mean Platelet Volume 9.9 fL (7.4-10.4); Platelet Count 212 10^3/uL (130-400); Red Blood Cell Count 5.03 10^6/uL (4.70-6.10); Red Cell Dist. Width 14.9 % (11.5-14.5); White Blood Cell Count 5.7 10^3/uL (4.8-10.8)
[2024-07-07 09:03] LABS: Blood Urea Nitrogen 26 mg/dl (9-20); Carbon Dioxide 31 mmol/L (22-30); Chloride 102 mmol/L (98-107); Estimated Creatinine Clearance 76 ml/min; Glucose 108 mg/dl (70-99); Potassium 4.6 mmol/L (3.5-5.1); Sodium 140 mmol/L (135-145); eGFR > 60.00
--- NOTE | 2024-07-07 09:06 | W.PN.HOSP.TC ---
Today's Communication/Plan
-
Chest x ray in am
Change to oral prednisone
Home O2 upon dc
Stop IVF
Resume Losartan
Assessment / Plan
Assessment / Plan
Physical Exam
General: Well Developed, Well Nourished and Respiratory Distress (audible wheezing, tachypneic)
HEENT: NormoCephalic, Anicteric and Moist mucous membranes
Respiratory: Wheezes (end expiratory)
Cardiac: S1/S2 and Regular Rhythm
GI: Non Tender, Non Distended and Normal Bowel Sounds
Musculoskeletal: No Clubbing, No Cyanosis and No Edema
Skin: Other (skin tag/lesion right face)
Neuro: AO x 3, No Motor Deficits and Nonfocal/grossly intact
Psych: Calm
The patient is a 68-year-old male with past medical history significant for COPD, hypertension, presenting to the ED today due to dyspnea, change in phlegm production, with shortness of breath that has worsened over the past 2 days. It started with
mild URI symptoms, and the became worse today, similar to prior COPD exacerbations. Home inhaler without relief. No CP. O2 in ED 88%, pulse 101, RR 32, initially unable to speak in full sentences. Not on home oxygen.
Flu A positive
Na 134 Creat 1.4
ED txt:
-Dexa 10 mg IV
-Duo-Neb INH
-Azithro PO
#Acute hypoxic respiratory insufficiency, 88% RA, improved to low 90s on 2 L associated with worsening cough w phlegm production
#Influenza A positive
#Large bulla within the medial and posterior right upper lung, which has developed an air-fluid level, possible infection of the bulla.
-O2 per NC w weaning protocol
-Pulm Consultation placed, discussed the patient with Pulm
- Recs: CT chest w/o contrast, treat for CAP
-IV Rocephin (pt tolerated cephalosporins in the past), oral Doxy
-Nebs scheduled
-IV Dexa 4 mg TID , reduce to oral prednisone
-Tamiflu 75 BID
-IV fluids for 1 liter, repeat labs in am
-supportive care, sputum cx, CHARLES
- negative legionella UA
-home BP meds w hold parameters
#Hyponatremia Na 134
Improved
# Hyperkalemia
s/p Hold Losartan
s/p One time Lokelma
# KATHIA on CKD II
s/p mild IVF
#concern for underlying CAP, bacterial
Empiric ABx
Ordered blood cultures
#Essential HTN
#BPH
#Skin tag/lesion right face
-pt will follow OP with Derm
DVT proph-SQ Lovenox
Full Code
Total time spent to see the patient, examine the patient, review data and lab results, discuss treatment plan with patient, nursing staff around 55 minutes
Anticipated Discharge: 24 - 48 hours
Subjective/Interval History
-
Date of Service: July 07, 2024
He feels better
Objective Data
-
Labs:
Laboratory Results
07/07/24
07:14
WBC 5.7
Hgb 15.2
Hct 47.2
Plt Count 212
Sodium 140
Potassium 4.6
Chloride 102
Carbon Dioxide 31 H
BUN 26 H
Creatinine 1.2
Glucose 108 H
Calcium 8.0 L
Vital Signs:
Vital Signs
Temp Pulse Resp BP Pulse Ox
98.3 F 86 16 152/77 93
07/07/24 07:10 07/07/24 08:11 07/07/24 08:11 07/07/24 07:10 07/07/24 08:11
I&O
07/06/24 07/07/24 07/08/24
06:59 06:59 06:59
Intake Total 1660 / 1660 480 / 480
Output Total 800 / 800 1500 / 1500
Balance 860 / 860 -1020 / -1020
[2024-07-07] MEDS: VIBRAMYCIN 100 MG PO ×2 (09:39→19:40)
[2024-07-07] MEDS: NORVASC 5 MG PO (09:39)
[2024-07-07] MEDS: NICODERM TRANSDERMAL 14 MG TRANSDERM (09:40)
[2024-07-07] MEDS: TAMIFLU 75 MG PO ×2 (09:40→19:40)
--- NOTE | 2024-07-07 10:20 | W.PN.PUL.V3 ---
Today's Communication / Plan
-
.
Wean oxygen.
Extended course of antibiotics.-Consider infectious disease opinion in regards to length of therapy for infected bulla.
And is on taper.
Continue nebulizers and inhalers.
Outpatient pulmonary/sleep disorders follow-up.
Pulmonary. We'll sign off-. Please call with questions
Assessment
-
68-year-old smoking unvaccinated male with a history of COPD, hypertension, obstructive sleep apnea CPAP intolerance as well as anxiety and obesity who presented with increasing shortness of breath, nonproductive cough, wheezing found to have
influenza and pneumonia-pulmonary was consulted for shortness of breath/influenza and pneumonia 07/06/2024.
COPD with acute exacerbation
Influenza A
Large right apical bleb/bulla-infected with air-fluid level
Hyponatremia
KATHIA
Conditions present prior to admission:
Hypertension.
COPD.
Tobacco addiction.
History of polycythemia-hemoglobin 18.3 02/2023
Anxiety.
Obstructive sleep apnea-severe CPAP intolerant.
BPH.
Right TKA 2021. Right shoulder rotator cuff repair. Hydrocele.
Plan
Respiratory decompensation in this unvaccinated smoker likely due to influenza and infected bulla/pneumonia
Supplemental oxygen as needed-currently on 2 L
Nebulizers.-Albuterol 4 times a day
Symbicort and Spiriva continue
Mucolytic's
Mucus clearing devices
Decadron changed to prednisone-slow taper
.
Cultures reviewed
Sputum culture if possible
Follow radiographically
Monitor leukocytosis
Empiric antibiotics-ceftriaxone and doxycycline initiated
Tamiflu
Isolation/droplet precautions per protocol.
Consider infectious disease consultation for length of therapy of infected bulla
Smoking cessation counseling provided
Vaccination counseling was also provided
Weight loss counseling
Monitor renal function-improving
DVT prophylaxis-on Lovenox
Nutrition
Early mobilization.
Continue extended course of antibiotics for infected bulla, wean oxygen, home prednisone taper, nebulizers, and inhalers-pulmonary. We'll sign off-. Please call with questions
Patient with severe obstructive sleep apnea, polycythemia-alternatives to CPAP including oral appliances, weight loss, positional therapy, and surgical interventions including hypoglossal nerve stimulation have been reviewed
Patient last saw Dr. Lemus 11/10/[id number] in the next 2 weeks
Diagnostic data:
Chest x-ray 07/05/2024-large bulla posterior right upper lobe developed air-fluid level and COPD changes
CT chest 03/18/2023:Reviewed, showed No evidence for pulmonary embolism.� No evidence for parenchymal lung disease.� Moderate paraseptal emphysema, upper lobe predominant..
CT chest 07/05/2024-centrilobular emphysema with multiple upper lobe blebs, new air-fluid level and a 7 cm right upper lobe bleb suggesting infection
Pulmonary function testing: (07/27/2023)FEV1 /FVC:42%FEV1:1.67 L-47%FVC:3.99 L -83% T.17-95%Residual volume:3.32 L-123%�RV/TLC ratio 46%Expiratory reserve volume:DLCO:10.97-38%DLCO/VA:49%
Portable sleep study 06/25/2023: Reviewed, showed severe obstructive sleep apnea.� Respiratory event index of 100 events per hour..
Echocardiogram 05/08/2020-normal EF, mild LVH, no valvular disease
Echocardiogram 04/06/2024-EF 55-60%, normal right ventricular size and function no valvular pathology
Subjective Data
-
Date of Service:
Date of Service: July 07, 2024
Chief Complaint: Pulmonary Follow Up and Dyspnea Follow Up
Subjective:
Feels a little better, still wheezing, no chest pain or productive cough, no abdominal pain
Review of Systems
General: Other ( per HPI)
Objective Data
Data Reviewed
Vital Signs / I&O:
Vital Signs
Temp Pulse Resp BP Pulse Ox
98.3 F 86 16 152/77 93
07/07/24 07:10 07/07/24 08:11 07/07/24 08:11 07/07/24 07:10 07/07/24 08:11
Intake and Output
07/06/24 07/07/24 07/08/24
06:59 06:59 06:59
Intake Total 1660 / 1660 480 / 480
Output Total 800 / 800 1500 / 1500
Balance 860 / 860 -1020 / -1020
SaO2: 93
Nasal Cannula flow liters per minute: 2
Physical Exam
General: Respiratory Distress (n) and Comfortable
HEENT: Normocephalic, Anicteric and Moist Mucous Membranes
Cardiovascular: Regular Rhythm
Respiratory: Clear ( diminished breath sounds and prolonged expiratory time), Wheeze ( diffuse expiratory), Non-Labored Respirations, Accessory Resp Muscle Use (n) and Stridor (n)
GI: Soft, Non Distended and Non Tender
Neurology: Awake, Alert and No Motor Deficits
Skin: Warm, Good Color, Cyanosis (n), Jaundice (n) and Rash (n)
Labs/Micro/Reports
Lab Data
07/07/24 07:14
07/07/24 07:14
Microbiology
07/06/24 10:54 Sputum Gram Stain - Preliminary
07/05/24 21:23 Urine Legionella Urinary Antigen - Final
Negative for Legionella pneumophila Serogroup 1 antigen.
A negative result does not rule out the possiblity of
Legionella infection due to other serogroups or species of
Legionella. Clinical correlation is recommended.
07/05/24 11:09 Nasal Swab Influenza Types A & B (SHEILA) - Final
Influenza A Positive, NAAT
[2024-07-07] MEDS: VENTOLIN NEBULES 2.5 MG INH ×3 (11:11→19:45)
--- NOTE | 2024-07-07 11:58 | CM ---
CM reviewed chart, patient seen bedside with . Patient positive for flu. Patient resides with in a two story home, no steps to enter. Patient denies DME in the home, currently on O2, not on home O2. Patient reports [facility] after knee surgery,
denies SNF. Patient PCP Shanice Elias, pharmacy [facility], confirms some prescription coverage through [employer]. Patient denies needs at this time. CM will continue to follow for all discharge planning needs.
Plan; home with , no needs anticipated, watch for O2 needs.
[2024-07-07] MEDS: DELTASONE 40 MG PO (12:35)
[2024-07-07 15:19] VITALS: BP 150/84
--- NOTE | 2024-07-07 15:41 | RESPNOTE ---
patient went to bathroom off O2, SpO2 on return only 87-88%, re-placed 2L O2.
[2024-07-07] MEDS: ROCEPHIN 1000 MG IV (18:34)
[2024-07-07] MEDS: STERILE WATER FOR INJECTION 10 ML IV (18:35)
[2024-07-07] MEDS: LOVENOX 40 MG SC (18:35)
[2024-07-07 23:00] VITALS: BP 131/62
[2024-07-08 07:06] VITALS: BP 151/71
[2024-07-08] MEDS: NORVASC 5 MG PO (07:57)
[2024-07-08] MEDS: VIBRAMYCIN 100 MG PO (08:00)
[2024-07-08] MEDS: COZAAR 100 MG PO (08:00)
[2024-07-08] MEDS: TAMIFLU 75 MG PO ×2 (08:00→19:51)
[2024-07-08] MEDS: NICODERM TRANSDERMAL 14 MG TRANSDERM (08:01)
[2024-07-08] MEDS: SYMBICORT 80/4.5 MCG INHALER 2 PUFF INH ×2 (08:17→19:56)
[2024-07-08] MEDS: SPIRIVA RESPIMAT 2.5 MCG 2 PUFF INH (08:17)
[2024-07-08] MEDS: VENTOLIN NEBULES 2.5 MG INH ×4 (08:17→19:56)
--- NOTE | 2024-07-08 09:19 | W.PN.HOSP.TC ---
Today's Communication/Plan
-
Chest x ray
f/w ID recommendations
will d/w consultants
Wean off O2, might need home O2
Assessment / Plan
Assessment / Plan
Physical Exam
General: Well Developed, Well Nourished and Respiratory Distress (audible wheezing, tachypneic)
HEENT: NormoCephalic, Anicteric and Moist mucous membranes
Respiratory: Wheezes (end expiratory)
Cardiac: S1/S2 and Regular Rhythm
GI: Non Tender, Non Distended and Normal Bowel Sounds
Musculoskeletal: No Clubbing, No Cyanosis and No Edema
Skin: Other (skin tag/lesion right face)
Neuro: AO x 3, No Motor Deficits and Nonfocal/grossly intact
Psych: Calm
The patient is a 68-year-old male with past medical history significant for COPD, hypertension, presenting to the ED today due to dyspnea, change in phlegm production, with shortness of breath that has worsened over the past 2 days. It started with
mild URI symptoms, and the became worse today, similar to prior COPD exacerbations. Home inhaler without relief. No CP. O2 in ED 88%, pulse 101, RR 32, initially unable to speak in full sentences. Not on home oxygen.
Flu A positive
Na 134 Creat 1.4
ED txt:
-Dexa 10 mg IV
-Duo-Neb INH
-Azithro PO
# Infected Bleb
Per pulmonary, wanted ID input
I will repeat x ray
#Acute hypoxic respiratory insufficiency, 88% RA, improved to low 90s on 2 L associated with worsening cough w phlegm production
#Influenza A positive
#Large bulla within the medial and posterior right upper lung, which has developed an air-fluid level, possible infection of the bulla.
-O2 per NC w weaning protocol
-Pulm Consultation placed, discussed the patient with Pulm
- Recs: CT chest w/o contrast, treat for CAP
-IV Rocephin (pt tolerated cephalosporins in the past), oral Doxy
-Nebs scheduled
-IV Dexa 4 mg TID , reduce to oral prednisone
-Tamiflu 75 BID
-s/p IVF. Sputum culture no growth
- negative legionella UA
-home BP meds w hold parameters
#Hyponatremia Na 134
Improved
# Hyperkalemia
s/p Hold Losartan
s/p One time Lokelma
# KATHIA on CKD II
s/p mild IVF
#concern for underlying CAP, bacterial
Empiric ABx
Ordered blood cultures
#Essential HTN
#BPH
#Skin tag/lesion right face
-pt will follow OP with Derm
DVT proph-SQ Lovenox
Full Code
Total time spent to see the patient, examine the patient, review data and lab results, discuss treatment plan with patient, nursing staff around 55 minutes
Anticipated Discharge: 24 - 48 hours
Subjective/Interval History
-
Date of Service: July 08, 2024
He feels better, still cough
Wheezing post Neb
Objective Data
-
Vital Signs:
Vital Signs
Temp Pulse Resp BP Pulse Ox
97.7 F 83 20 151/71 93
07/08/24 07:06 07/08/24 08:19 07/08/24 08:19 07/08/24 07:06 07/08/24 08:19
I&O
07/07/24 07/08/24 07/09/24
06:59 06:59 06:59
Intake Total 480 / 480 1200 / 1200 240 / 240
Output Total 1500 / 1500
Balance -1020 / -1020 1200 / 1200 240 / 240
[2024-07-08] MEDS: DELTASONE 40 MG PO (11:55)
--- NOTE | 2024-07-08 14:39 | CON.ID ---
Consultation
-
Date/Time Consultation Requested: 07/08/24 6:49
Date/Time Consultation Performed: 07/08/24 14:39
Requesting Provider: Dr Vaughn
Performing Provider: Dr Casey
Reason for Consultation: Pneumonia/ infected bulla
Chief Complaint / Past History
Chief Complaint
shortness of breath
History of Present Illness
Mr Camargo is a 68 year old male with history of COPD presenting for dyspnea (not on O2 at home), increased phlegm, worsening over two days. Home inhaler without relief. No chest pain, nausea, vomiting, diarrhea, dysuria.
Since arrival has been afebrile, O2 in ED 88%, pulse 101, RR 32, initially unable to speak in full sentences, wbc 5.8 today 5.7, hgb 15.2, plt 212, L shift noted, cr 1.4 on arrival now 1.2, lactic acid 1.4, Serial Xrays and CT also notable for
bullae with airfluid level. Flu A positive. On tamiflu, ceftriaxone, doxycycline, ID is asked to comment on antibiotic selection/duration.
Past History
Additional Past Medical History:
COPD, HTN (Essential), Psychiatric (anxiety) and Other (FAIZAN intolerant to CPAP, BPH, obesity
Additional Past Surgical History:
(knee surgery) and Other (hydrocele)
Allergy History:
Penicillins Allergy (Verified 07/05/24 09:48)
Rash
Medications Reviewed: Yes
Social History
Tobacco: Smoker
Alcohol: None
Drug: None
Family History
Family History: Not Pertinent
Review of Systems
Review of Systems
General: Negative Fever or Chills
All systems: All other systems were reviewed and were negative
Vital Signs
Temp Pulse Resp BP Pulse Ox
97.7 F 85 16 151/71 93
07/08/24 07:06 07/08/24 11:35 07/08/24 11:35 07/08/24 07:06 07/08/24 08:19
Physical Exam
Physical Exam
Constitutional: No Acute Distress and Chronically Ill
Cardiovascular: Regular Rate and S1/S2; Negative Murmur or Rub
Pulmonary: Clear and Symmetric; Negative Wheezes, Rales or Rhonchi
Gastrointestinal: Soft, Non Tender, Non Distended and Normal Bowel Sounds
Skin: Warm and Dry; Negative Rash or Jaundice
Lab / Diagnostic Study Results
07/07/24 07:14
07/07/24 07:14
Abs Immat Gran (auto) 0.0 10^3/uL (0-0.05) 07/05/24 10:14
Absolute Neuts (auto) 4.4 10^3/uL (1.4-6.5) 07/05/24 10:14
Absolute Lymphs (auto) 0.5 10^3/uL (1.2-3.4) L 07/05/24 10:14
Absolute Monos (auto) 0.8 10^3/uL (0.1-0.6) H 07/05/24 10:14
Absolute Basos (auto) 0.0 10^3/uL (0-0.2) 07/05/24 10:14
Immature Gran % 0.3 % (0-0.5) 07/05/24 10:14
Neutrophils % 75.9 % (42.2-75.2) H 07/05/24 10:14
Lymphocytes % 7.8 % (20.5-51.1) L 07/05/24 10:14
Monocytes % 14.3 % (1.7-9.3) H 07/05/24 10:14
Eosinophils % 1.0 % (0-6) 07/05/24 10:14
Basophils % 0.7 % (0-2) 07/05/24 10:14
Lactic Acid Cancelled 07/05/24 14:15
Microbiology Results
Micro:
07/06/24 10:54 Respiratory Culture - Final
Sputum Usual Respiratory Erica
Gram Stain - Final
07/06/24 10:54 Blood Culture - Preliminary
Blood/Venous No Growth in 48 hours- Final report to follow
07/05/24 21:23 Legionella Urinary Antigen - Final
Urine Negative for Legionella pneumophila Serogroup 1 antigen.
A negative result does not rule out the possiblity of
Legionella infection due to other serogroups or species of
Legionella. Clinical correlation is recommended.
07/05/24 11:09 Influenza Types A & B (SHEILA) - Final
Nasal Swab Influenza A Positive, NAAT
Assessment / Plan
Lung Abscess (Infected Bleb)
penicillin allergy - rash; tolerates ceftriaxone
Flu A
- single set of blood cultures was no growth at 48 hours, low yield from further cultures at this point
- resp culture usual resp erica
- note flu A positive - plan 5 days of tamiflu
- start cefdinir and metronidazole - plan at least 21 day course 07/08-08/01, then repeat CXR 2 view and reassessment in ID clinic with me on tuesday 08/01
- stable for dc from ID perspective
[2024-07-08 15:15] VITALS: BP 150/85
--- NOTE | 2024-07-08 15:21 | CONSULT.CT ---
Consultation
-
Performing Provider: Daniele Jacinto PA-C
Reason for Consultation: Lung abscess (air-fluid level and a bullae)
Patient History
History of Present Illness
Patient is a 68-year-old male who was admitted to the hospital with complaints of increasing cough, shortness of breath, fever, chills, malaise. Patient has a history of COPD and his progressive shortness of breath is concerning for exacerbation.
Ultimately workup revealed influenza A. Also notable on CT scan was evidence of a lung abscess with an infected bullae with air-fluid level. Patient was placed on intravenous antibiotics with subsequent improvement in his symptoms. Pulmonology
was involved and felt that treatment antibiotics and outpatient follow-up would be appropriate. We are asked to comment on whether surgical excision of the bullae would be necessary now or in the future.
Past Medical History
COPD, not O2 dependent at home
Hypertension
Hyperlipidemia
Obesity
BPH
Obstructive sleep apnea noncompliant with CPAP
Active tobacco abuse with [id number] history
Past Surgical History
Right total knee arthroplasty
Right rotator cuff repair
Social History
Alcohol: None
Drug: None
Tobacco: Smoker
Allergies
Allergy/AdvReac Type Severity Reaction Status Date / Time
Penicillins Allergy Rash Verified 07/08/24 14:47
Home Medications
�Medication �Instructions �Recorded �Confirmed �Type
fluticasone fur. 100 mcg-umeclid 1 inh inhalation R DAILY 12/07/23 07/05/24 History
62.5 mcg-vilant 25 mcg Lung/Breathing Issues
inhalat.powder (Trelegy Ellipta)
amlodipine 5 mg tablet 5 mg PO DAILY Blood Pressure 01/04/24 07/05/24 History
ftpuwfuoq-MHB-AR-acetaminophen 7.5 15 ml PO HSPRN PRN cough and 07/05/24 07/05/24 History
mg-60 [id number]/30mL oral liqd congestion
losartan 50 mg tablet 100 mg PO DAILY Blood Pressure 07/05/24 07/05/24 History
Review of Systems
-
History Source: Patient
General: Reports Fatigue
HEENT: Reports No Symptoms
Respiratory: Reports SOB, HERNADEZ and Cough
Cardiac: Reports No Symptoms
Abdomen/GI: Reports No Symptoms
: Reports No Symptoms
Musculoskeletal: Reports No Symptoms
Skin: Reports No Symptoms
Neurological: Reports No Symptoms
Vascular: Reports No Symptoms
Physical Exam
Vital Signs
Temp 97.7 F 07/08/24 07:06
Temp route: Oral 07/08/24 07:06
Pulse 85 07/08/24 11:35
Rhythm: Normal sinus rhythm 07/06/24 09:18
Resp Rate 16 07/08/24 11:35
Blood pressure 151/71 07/08/24 07:06
Blood pressure extremity used: Left upper arm 07/08/24 07:06
Position: Lying 07/08/24 07:06
MAP (cuff-Gutierrez Monitor) 75 07/06/24 09:00
SaO2 93 07/08/24 08:19
Nasal Cannula flow liters per minute 2 07/08/24 08:19
Oxygen Mode of Delivery Room air 07/05/24 09:48
Acceptable pain level during hospitalization? 0 07/05/24 09:48
Can the patient verbally communicate their pain? Yes 07/08/24 08:00
Actual Weight 113.852 kg 07/06/24 18:26
Body Mass Index (BMI) 33.1 07/06/24 18:26
Labs
07/07/24 07:14
07/07/24 07:14
Imn-D-Gkrbbyhpjuo Pept 989 pg/ml 07/05/24 10:14
Exam
General: Well Developed, Well Nourished and No Apparent Distress
HEENT: Normocephalic and Anicteric
Respiratory: Wheezes and Rhonchi
Cardiac: S1/S2 and Regular Rhythm
GI: Soft, Non Tender and Non Distended
Rectal: Deferred by Provider
Skin: Warm and Dry
Neuro: AO x 3
Psych: Calm
Assessment / Plan
-
The patient has a lung abscess. He has a bullae with an air-fluid level. At this point his symptoms are improving with antibiotic therapy. Recommend infectious disease consultation for definitive recommendations regarding length of course and
specific agents. Patient follows with pulmonology (Dr. Lemus) outpatient for his known COPD. He will be seen by them within about 2 weeks for further evaluation. He may require resection of these bullae in the future particularly if he fails
medical therapy alone for treatment of this problem. In that case he would require referral to Dr. Merritt for consideration of this. For now we would recommend conservative management given the patient's improvement in symptoms and overall clinical
picture. No further recommendations at this time. Will follow peripherally while inpatient.
I discussed the above assessment and plan with my attending surgeon Dr. Alec Figueroa who is in agreement. Any changes will be reflected in the form of an addendum.
Please note the majority of this consultation was created using voice recognition software. Please excuse any phonetic or grammatical errors as a result.
Data Reviewed
-
Radiology: Image Personally Visualized and interpreted
CT Scan: Image Personally Visualized and interpreted
Labs: Labs Reviewed by me
Total Time Spent with Patient (in minutes): 60
[2024-07-08] MEDS: STERILE WATER FOR INJECTION IV (18:59)
[2024-07-08] MEDS: LOVENOX 40 MG SC (18:59)
[2024-07-08] MEDS: FLAGYL 500 MG PO (19:51)
[2024-07-08 23:05] VITALS: BP 143/83
[2024-07-09] MEDS: OMNICEF 300 MG PO ×2 (06:04→09:52)
[2024-07-09 07:15] VITALS: BP 150/76
[2024-07-09] MEDS: SPIRIVA RESPIMAT 2.5 MCG 2 PUFF INH (07:50)
[2024-07-09] MEDS: VENTOLIN NEBULES 2.5 MG INH ×2 (07:51→11:36)
[2024-07-09] MEDS: SYMBICORT 80/4.5 MCG INHALER 2 PUFF INH (07:51)
--- NOTE | 2024-07-09 08:42 | W.PN.HOSP.TC ---
Addendum entered and electronically signed by Alfa Vaughn MD 07/09/24 10:45:
Patient is in need of oxygen at 2 liters/minute via nasal cannula continuously due to pulse oximetry of 86% on room air at rest and ambulation. Oxygen will help to improve hypoxemia. Patient is mobile within the home. DuoNeb therapy has been tried
and is ineffective in treating hypoxemia related symptoms. Oxygen is needed to improve symptoms.
Original Note:
Today's Communication/Plan
-
Discharge
Home O2
Assessment / Plan
Assessment / Plan
Physical Exam
General: Well Developed, Well Nourished and Respiratory Distress (audible wheezing, tachypneic)
HEENT: NormoCephalic, Anicteric and Moist mucous membranes
Respiratory: Wheezes (end expiratory)
Cardiac: S1/S2 and Regular Rhythm
GI: Non Tender, Non Distended and Normal Bowel Sounds
Musculoskeletal: No Clubbing, No Cyanosis and No Edema
Skin: Other (skin tag/lesion right face)
Neuro: AO x 3, No Motor Deficits and Nonfocal/grossly intact
Psych: Calm
The patient is a 68-year-old male with past medical history significant for COPD, hypertension, presenting to the ED today due to dyspnea, change in phlegm production, with shortness of breath that has worsened over the past 2 days. It started with
mild URI symptoms, and the became worse today, similar to prior COPD exacerbations. Home inhaler without relief. No CP. O2 in ED 88%, pulse 101, RR 32, initially unable to speak in full sentences. Not on home oxygen.
Flu A positive
Na 134 Creat 1.4
ED txt:
-Dexa 10 mg IV
-Duo-Neb INH
-Azithro PO
# Infected Bleb
Per pulmonary, wanted ID input
Repeat x ray no worsening
d/w CT surgery, no indication for surgery at present time, recommend AB therapy
Seen by ID: cefdinir and metronidazole - plan at least 21 day course 07/08-08/01, then repeat CXR 2 view and reassessment in ID clinic with me on Tuesday 08/01. Appreciate help.
#Acute hypoxic respiratory failure, 87% RA, with distress, tachypnea, wheezes.
#Influenza A positive
-O2 per NC w weaning protocol, order home O2
-s/p IV antibiotics and Nebs.
-IV Dexa 4 mg TID, changed to tapering oral prednisone
-Tamiflu 75 BID
-s/p IVF. Sputum culture no growth
- negative legionella UA
#Hyponatremia Na 134
Improved
# Hyperkalemia
s/p Hold Losartan
s/p One time Lokelma
# KATHIA on CKD II
s/p mild IVF
#concern for underlying CAP, bacterial
Empiric ABx
Ordered blood cultures
#Essential HTN
#BPH
#Skin tag/lesion right face
-pt will follow OP with Derm
DVT proph-SQ Lovenox
Full Code
Total discharge time spent to see the patient, examine the patient, review data and lab results, discuss discharge plan with patient, nursing staff around 67 minutes
Anticipated Discharge: Today
Subjective/Interval History
-
Date of Service: July 09, 2024
Doing well
No wheezes
No chest pain or sob
Objective Data
-
Vital Signs:
Vital Signs
Temp Pulse Resp BP Pulse Ox
97.9 F 82 16 150/76 92
07/09/24 07:15 07/09/24 07:55 07/09/24 07:55 07/09/24 07:15 07/09/24 07:55
I&O
07/08/24 07/09/24 07/10/24
06:59 06:59 06:59
Intake Total 1200 / 1200 1140 / 1140 480 / 480
Balance 1200 / 1200 1140 / 1140 480 / 480
[2024-07-09] MEDS: FLAGYL 500 MG PO (09:52)
[2024-07-09] MEDS: TAMIFLU 75 MG PO (09:53)
[2024-07-09] MEDS: COZAAR 100 MG PO (09:53)
[2024-07-09] MEDS: NORVASC 5 MG PO (09:54)
[2024-07-09] MEDS: NICODERM TRANSDERMAL 14 MG TRANSDERM (09:55)
--- NOTE | 2024-07-09 11:08 | CM ---
Addendum entered by Maude Roche 07/09/24 13:16:
spouse to transport patient
Original Note:
Chart reviewed and case therapist spoke with patient's physician and plan is for patient to return to home with home oxygen today. DME companies reviewed with patient and patient has selected [facility], testing has been completed and
prescription has been sent to oxygen company.
Plan; Home with oxygen from [facility].
[2024-07-09] MEDS: DELTASONE 40 MG PO (11:56)
--- NOTE | 2024-07-09 11:59 | W.PN.ID1 ---
Date of Service
Date of Service: July 09, 2024
Today's Communication
c/w cefdinir through 08/01, then repeat CXR 2 view and reassessment in ID clinic with me on tuesday 08/01
Assessment / Plan
Lung Abscess (Infected Bleb)
penicillin allergy - rash; tolerates ceftriaxone
Flu A
- resp culture usual resp erica
- note flu A positive - plan 5 days of tamiflu
- c/w cefdinir and metronidazole - plan at least 21 day course 07/08-08/01, then repeat CXR 2 view and reassessment in ID clinic with me on tuesday 08/01
- stable for dc from ID perspective
Chief Complaint
-: Other (lung abscess)
Subjective / Review of Systems
afebrile
bp stable
tolerating oral antibiotics
Vital Signs / Physical Exam
Vital Signs
Vital Signs
Temp Pulse Resp BP Pulse Ox
97.9 F 80 16 150/76 92
07/09/24 07:15 07/09/24 11:48 07/09/24 11:48 07/09/24 07:15 07/09/24 07:55
Physical Exam
Constitutional: No Acute Distress and Non-toxic
Cardiovascular: Regular Rate and S1/S2; Negative Murmur or Rub
Pulmonary: Clear and Symmetric; Negative Wheezes or Rales
Gastrointestinal: Soft, Non Tender, Non Distended and Normal Bowel Sounds
Skin: Warm and Dry; Negative Rash or Jaundice
Objective Data
Lab Data
Lab Results
07/07/24 07:14
07/07/24 07:14
Estimated Creat Clear 76 ml/min 07/07/24 07:14
Lactic Acid Cancelled 07/05/24 14:15
Total Bilirubin 0.5 mg/dl (0.2-1.3) 07/05/24 10:14
AST 22 U/L (17-59) 07/05/24 10:14
ALT 20 U/L (0-50) 07/05/24 10:14
Alkaline Phosphatase 84 U/L (38-126) 07/05/24 10:14
Most recent labs reviewed.
Micro Results:
07/06/24 10:54 Blood Culture - Preliminary
Blood/Venous No Growth in 72 hours- Final report to follow
07/06/24 10:54 Respiratory Culture - Final
Sputum Usual Respiratory Erica
Gram Stain - Final
07/05/24 21:23 Legionella Urinary Antigen - Final
Urine Negative for Legionella pneumophila Serogroup 1 antigen.
A negative result does not rule out the possiblity of
Legionella infection due to other serogroups or species of
Legionella. Clinical correlation is recommended.
07/05/24 11:09 Influenza Types A & B (SHEILA) - Final
Nasal Swab Influenza A Positive, NAAT
[2024-07-09 12:07] VITALS: BP 120/84
--- NOTE | 2024-07-09 13:13 | W.DCSUMMARY ---
Discharge Summary
Discharge Data
Date of Admission: 07/06/24
Date of Discharge: 07/09/24
-
Pending Results: No
Hospital Course
68 years old male presented to the emergency room with shortness of breath, coughing in last a few days. His symptoms started with upper respiratory symptoms. Patient tested positive for influenza A. Patient had history of tobacco use. He was
noted to have hypoxia was diagnosed with acute hypoxic respiratory failure. Chest imaging studies including CAT scan showed centrilobular emphysema with multiple upper lobe blebs, new air-fluid level and a 7 cm right upper lobe bleb suggesting
infection. Patient was evaluated by pulmonary doctor infectious diseases doctor. He received intravenous antibiotic, steroid therapy and nebulizer treatment. His hypoxia remained more noticeable on ambulation. Home oxygen therapy was set up for
him. Infectious disease doctor recommended extended course of antibiotics and follow-up chest radiography in outpatient setting. Cardiothoracic surgery evaluated the blood and recommended to continue antibiotic therapy with outpatient consultation
if needed. Patient remained hemodynamically stable. He is expressed his wishes to quit smoking. He was given nicotine patch. Patient was discharged home in a stable condition.
Discharge Plan
-
Patient Disposition: Home (Routine Discharge)
Discharge Diagnosis/Procedures: Influenza A infection
COPD/ acute hypoxic respiratory failure requiring oxygen
Tobacco use
Obstructive sleep apnea-severe CPAP intolerant
Lung Abscess (Infected Bleb)- bullae with an air-fluid level in upper lobe of right lung.
You were seen by pulmonary, infectious diseases and CT surgery doctors. You received IV antibiotics, steroid therapy, Tamiflu, nebulizer treatment with oxygen supplementations.
Diet: As tolerated and Low Cholesterol
Blood Work: Chest x ray 2 view before you see ID doctor
Referrals:
Shanice Elias CRNP [Family Provider] -
Austin Ballesteros MD [Active] - in one to two weeks (Or nurse practitioner)
Emily Casey MD [Active] - 08/01/24
Prescriptions:
New
nicotine 14 mg/24 hr Patch 24 Hour
14 mg transdermal DAILY Qty: 28 0RF
metronidazole 500 mg Tablet
500 mg PO BID Qty: 46 0RF
cefdinir 300 mg Capsule
300 mg PO Q12 Qty: 46 0RF
Rx Instructions:
patient tolerated the medicine in the hospital
oseltamivir 75 mg Capsule
75 mg PO BID Qty: 3 0RF
Rx Instructions:
Patient needs only 3 doses to finish the course.
albuterol sulfate [Ventolin HFA] 90 mcg/actuation HFA aerosol inhaler
2 puff inhalation Q6H PRN (Reason: shortness of breath or wheezing) Qty: 6.7 0RF
prednisone 10 mg tablet
10 mg PO DAILY Qty: 12 0RF
Rx Instructions:
30 mg X2 days, 20 mg X 2 days, 10 mg X 2 days.
Continued
Trelegy Ellipta 100-62.5-25 mcg Blister With Device
1 inh INHALATION R DAILY
amlodipine 5 mg tablet
5 mg PO DAILY
losartan 50 mg tablet
100 mg PO DAILY
Discontinued
NyQuil 7.5-60-30-1,000 mg/30 mL Liquid
15 ml PO HSPRN PRN (Reason: cough and congestion)
Discharge Orders:
Discharge Patient (As Directed); Ordered 07/09/24
Ordered By: Alfa Vaughn
Discharge Date and Time
Print Language: ARMENIAN
== END 2024-07-09 14:21 | disposition home or self-care (01) | DRG 177 ==
LOC: 4 WEST ACU 09:25
PROVIDERS: Physician Assistant; ADMITTING PHYSICIAN Internal Medicine; ATTENDING PHYSICIAN Internal Medicine; CONSULT PHYSICIAN Internal Medicine Critical Care Medicine; EMERGENCY PHYSICIAN Emergency Medicine; FAMILY PHYSICIAN Nurse Practitioner Family; OTHER PHYSICIAN Student in an Organized Health Care Education/Training Program; OTHER PHYSICIAN Thoracic Surgery (Cardiothoracic Vascular Surgery)
DX: J85.1 Abscess of lung with pneumonia (principal); J96.01 Acute respiratory failure with hypoxia; E87.1 Hypo-osmolality and hyponatremia; N17.9 Acute kidney failure, unspecified; J10.1 Influenza due to other identified influenza virus with other respiratory manifestations; F41.9 Anxiety disorder, unspecified; J43.2 Centrilobular emphysema; F17.210 Nicotine dependence, cigarettes, uncomplicated; E87.5 Hyperkalemia; I12.9 Hypertensive chronic kidney disease with stage 1 through stage 4 chronic kidney disease, or unspecified chronic kidney disease; N18.2 Chronic kidney disease, stage 2 (mild); E78.5 Hyperlipidemia, unspecified; G47.33 Obstructive sleep apnea (adult) (pediatric); N40.0 Benign prostatic hyperplasia without lower urinary tract symptoms; E66.9 Obesity, unspecified; Z60.2 Problems related to living alone; Z96.651 Presence of right artificial knee joint; Z68.33 Body mass index [BMI] 33.0-33.9, adult; Z11.52 Encounter for screening for COVID-19; Z88.0 Allergy status to penicillin; Z79.51 Long term (current) use of inhaled steroids; Z82.49 Family history of ischemic heart disease and other diseases of the circulatory system; Z28.39 Other underimmunization status; Z91.199 Patient's noncompliance with other medical treatment and regimen due to unspecified reason
CPT/HCPCS: 71046; 71250; 80048; 80053; 83605; 83880; 85025; 85027; 87040; 87070; 87205; 87449; 87502; 87811; 93005; 94640; 96374; 99285; 99406

== ENCOUNTER → 2024-07-31 07:48 | Outpatient (REF) | payer MEDICARE, OTHER, SELFPAY | LOC: RAD 07:48 | PROVIDERS: ATTENDING PHYSICIAN Student in an Organized Health Care Education/Training Program | DX: J15.3 Pneumonia due to streptococcus, group B (principal) | CPT/HCPCS: 71046 ==

== ENCOUNTER → 2024-08-29 10:03 | Outpatient (REF) | payer MEDICARE, OTHER, SELFPAY | LOC: HWRAD 10:03 | PROVIDERS: ATTENDING PHYSICIAN Student in an Organized Health Care Education/Training Program; FAMILY PHYSICIAN Physician Assistant Medical | DX: J85.2 Abscess of lung without pneumonia (principal) | CPT/HCPCS: 71250 ==

== ENCOUNTER 2024-09-27 07:20 | Day surgery (SDC) | payer MEDICARE, OTHER, SELFPAY ==
[2024-09-18 14:24] VITALS: BMI 34.8
[2024-09-27] VITALS (9 sets, daily range): BP systolic 100–137; BP diastolic 62–93; BMI 34.8
[2024-09-27 15:50] LABS: Brochalveolar Lavage Character Hazy (Clear); Brochalveolar Lavage Color Pink; Brochalveolar Lavage Volume 5 ml; Brochalveolar Lavage WBC 13200 cells/ml
[2024-09-28 11:40] LABS: BAL Neutrophils 26 %
[2024-09-28 11:41] LABS: BAL Eosinophils 3 %; BAL Lining Cells 20 %; BAL Lymphocytes 21 %; BAL Macrophages 30 %
== END 2024-09-27 14:16 | disposition home or self-care (01) ==
LOC: GI 07:20
PROVIDERS: ATTENDING PHYSICIAN Internal Medicine Critical Care Medicine
DX: J85.2 Abscess of lung without pneumonia (principal); R06.02 Shortness of breath; R91.8 Other nonspecific abnormal finding of lung field; R09.89 Other specified symptoms and signs involving the circulatory and respiratory systems; R93.89 Abnormal findings on diagnostic imaging of other specified body structures; J84.09 Other alveolar and parieto-alveolar conditions; J98.4 Other disorders of lung
CPT/HCPCS: 31645; 31624; 31627; 88305; 71045; 76000; 87070; 87102; 87116; 87205; 88112; 89051; 94640; C1887